=== PATIENT | male | born 1995 | race Two or more races ===

== ENCOUNTER 2019-06-21 04:03 | Emergency (ER) | payer MEDICAID, OTHER ==
[~2019-06-21] VITALS: Ht 172.7 cm; Wt 88.5 kg
[2019-06-21 04:13] VITALS: BP 144/64
== END 2019-06-21 10:06 | disposition left against medical advice (07) ==
LOC: EDBD 04:03 → ER 04:03
DX: R11.2 Nausea with vomiting, unspecified (principal); Z53.21 Procedure and treatment not carried out due to patient leaving prior to being seen by health care provider

== ENCOUNTER 2020-06-05 07:22 | Inpatient (IN) | payer MEDICAID ==
[~2020-06-05] VITALS: Ht 172.7 cm; Wt 84.1 kg
[2020-06-05] MEDS ORDERED: SODIUM CHLORIDE 0.9% 1,000 ML IVB ONE (07:45)
[2020-06-05] MEDS ORDERED: ONDANSETRON HCL 4 MG/2 ML VIAL IV ONE (07:45)
[2020-06-05] MEDS ORDERED: KETOROLAC TROMETH 30 MG/ML 1ML VIAL IV ONE (07:45)
[2020-06-05] MEDS ORDERED: cefTRIAXone 1GM/50ML D5W 50 ML IV ONE (08:30)
[2020-06-05 08:38] LABS: Basophils # (auto) 0 10 ^3/uL (0-0.2); Basophils % (auto) 0.1 % (0.0-2.0); Eosinophils # (auto) 0 10 ^3/uL (0-0.8); Eosinophils % (auto) 0.3 % (0.0-7.0); Hematocrit 43.6 % (41.0-53.0); Hemoglobin 14.9 g/dL (13.5-17.5); Lymphocytes # (auto) 1.6 10 ^3/uL (0.4-5.4); Lymphocytes % (auto) 11.8 % (10.0-50.0); Mean Corpuscular Hgb Conc. 34.2 g/dL (32.0-36.0); Mean Corpuscular Volume 87.6 fL (80.0-100.0); Monocytes # (auto) 0.7 10 ^3/uL (0-1.3); Monocytes % (auto) 5.2 % (0.0-12.0); Neutrophils # (auto) 10.8 10 ^3/uL (1.6-8.6); Neutrophils % (auto) 82.6 % (37.0-80.0); Platelet Count (auto) 205 10^3/uL (140-450); Red Blood Cells 4.99 10^6/uL (4.5-5.90); Red Cell Distribution Width 12.8 % (11.8-14.3); White Blood Cell 13.1 10^3/uL (4.4-10.8)
[2020-06-05 08:39] LABS: Urine Bacteria NONE SEEN /hpf (None Seen); Urine Blood Negative /uL (Negative); Urine Mucus FEW (None Seen); Urine Specific Gravity 1.017 (1.001-1.035); Urine WBC 1 /hpf (0 - 3)
[2020-06-05 08:52] LABS: Albumin 4.2 g/dL (3.4-5.0); Calcium 9.3 mg/dL (8.5-10.1); Potassium 3.7 mmol/L (3.5-5.1)
[2020-06-05 08:58] LABS: BUN/Creatinine Ratio 8.8; Bilirubin, Total 0.7 mg/dL (0.2-1.0); Total Protein 7.4 g/dL (6.4-8.2)
[2020-06-05 09:23] LABS: INR 1.01 (0.9-1.15); Partial Thromboplastin Time 28.3 sec (23.0-31.2)
[2020-06-05] MEDS ORDERED: metroNIDAZOLE 500MG/100ML 100 ML IV ONE (10:45)
[2020-06-05] MEDS: D5W/SOD CHL 0.45%/KCL 20MEQ 1,000 ML IV SCH (11:15)
[2020-06-05] MEDS ORDERED: ONDANSETRON HCL 4 MG/2 ML VIAL IV PRN ×2 (11:30→14:30)
[2020-06-05] MEDS: metroNIDAZOLE 500MG/100ML 100 ML IV SCH ×2 (12:45→22:00)
[2020-06-05] MEDS ORDERED: fentaNYL CITRATE 100 MCG/2 ML VL ONE ×3 (12:50→15:14)
[2020-06-05] MEDS ORDERED: MIDAZOLAM HCL 1MG/1ML-2 ML VIAL ONE (12:50)
[2020-06-05] MEDS ORDERED: SUCCINYLCHOLINE CHLORIDE 20 MG/ML 10ML VIAL IV ONE (12:54)
[2020-06-05] MEDS ORDERED: ROCURONIUM 10MG/ML 10ML VIAL IV ONE (12:59)
[2020-06-05] MEDS ORDERED: POVIDONE IODINE 10 % TOPICAL OINT 30GM TOP ONE (13:00)
[2020-06-05] MEDS: ceFAZolin 1GM/50ML 50 ML IV ONE (13:14)
[2020-06-05] MEDS ORDERED: PROPOFOL 10 MG/ML 20 ML IV ONE (13:43)
[2020-06-05] MEDS ORDERED: METOCLOPRAMIDE HCL 5MG/ml INJ 2ml VIAL ONE (13:43)
[2020-06-05] MEDS ORDERED: NEOSTIGMINE 1 MG/ML INJ (10mg/10ML VIAL) ONE (13:58)
[2020-06-05] MEDS ORDERED: GLYCOPYRROLATE 0.2 MG/ML 1ML VIAL ONE (13:58)
[2020-06-05] MEDS ORDERED: HYDROmorphone HCL 2 MG/ML VL IV PRN (14:30)
[2020-06-05] MEDS: HYDROmorphone HCL 2 MG/ML VL IV PRN ×4 (14:30→15:00)
[2020-06-05] MEDS ORDERED: fentaNYL CITRATE 100 MCG/2 ML VL IV PRN (15:00)
[2020-06-05] MEDS ORDERED: NALOXONE HCL 0.4 MG/ML VIAL ONE (15:22)
[2020-06-05] MEDS ORDERED: ACETAMINOPHEN IV 1000 MG/100ML (10MG/ML) IV ONE (18:00)
[2020-06-05] MEDS ORDERED: ACETAMINOPHEN IV 100 ML IV ONE (18:19)
[2020-06-05 22:00] VITALS: BP 112/68
[2020-06-05 22:58] VITALS: BP 122/68
[2020-06-06] MEDS: MORPHINE SULF INJ 2 MG/ML SYRINGE 1ML IV PRN ×3 (00:30→22:14)
[2020-06-06 05:00] VITALS: BP 111/59
[2020-06-06] MEDS: metroNIDAZOLE 500MG/100ML 100 ML IV SCH ×3 (05:47→22:14)
[2020-06-06 06:00] LABS: Basophils # (auto) 0 10 ^3/uL (0-0.2); Basophils % (auto) 0.1 % (0.0-2.0); Eosinophils # (auto) 0 10 ^3/uL (0-0.8); Hematocrit 36.3 % (41.0-53.0); Hemoglobin 12.6 g/dL (13.5-17.5); Lymphocytes # (auto) 1.5 10 ^3/uL (0.4-5.4); Mean Corpuscular Hemoglobin 29.7 pg (28.0-32.0); Mean Corpuscular Hgb Conc. 34.6 g/dL (32.0-36.0); Mean Corpuscular Volume 85.8 fL (80.0-100.0); Monocytes # (auto) 0.8 10 ^3/uL (0-1.3); Neutrophils # (auto) 8.8 10 ^3/uL (1.6-8.6); Neutrophils % (auto) 78.9 % (37.0-80.0); Platelet Count (auto) 200 10^3/uL (140-450); Red Blood Cells 4.24 10^6/uL (4.5-5.90); Red Cell Distribution Width 12.6 % (11.8-14.3); White Blood Cell 11.1 10^3/uL (4.4-10.8)
[2020-06-06 06:22] LABS: Potassium 3.5 mmol/L (3.5-5.1)
[2020-06-06 06:33] LABS: Albumin 3.6 g/dL (3.4-5.0); BUN/Creatinine Ratio 8.8; Bilirubin, Total 0.8 mg/dL (0.2-1.0); Calcium 8.7 mg/dL (8.5-10.1); Total Protein 6.5 g/dL (6.4-8.2)
[2020-06-06 09:00] VITALS: BP 113/69
[2020-06-06] MEDS: cefTRIAXone 1GM/50ML D5W 50 ML IV SCH (09:52)
[2020-06-06 13:00] VITALS: BP 131/81
[2020-06-06 17:00] VITALS: BP 125/84
[2020-06-06 22:00] VITALS: BP 142/75
[2020-06-07 05:00] VITALS: BP 133/53
[2020-06-07] MEDS: D5W/SOD CHL 0.45%/KCL 20MEQ 1,000 ML IV SCH (05:42)
[2020-06-07] MEDS: metroNIDAZOLE 500MG/100ML 100 ML IV SCH ×3 (07:14→22:22)
[2020-06-07 09:02] VITALS: BP 125/69
[2020-06-07] MEDS: cefTRIAXone 1GM/50ML D5W 50 ML IV SCH (09:13)
[2020-06-07 13:00] VITALS: BP 138/74
[2020-06-07 17:00] VITALS: BP 104/62
[2020-06-07 22:00] VITALS: BP 134/77
[2020-06-08 05:00] VITALS: BP 142/84
[2020-06-08] MEDS: metroNIDAZOLE 500MG/100ML 100 ML IV SCH ×2 (05:30→13:27)
[2020-06-08] MEDS: MORPHINE SULF INJ 2 MG/ML SYRINGE 1ML IV PRN (05:30)
[2020-06-08] MEDS: cefTRIAXone 1GM/50ML D5W 50 ML IV SCH (11:21)
[2020-06-08 14:18] VITALS: BP 120/77
== END 2020-06-08 15:40 | disposition home or self-care (01) | DRG 233 ==
LOC: ER 07:22 → OVERFLOW 07:23 → CENTRAL 22:15 → WEST WING 06-07 17:35 → TELE-WESTW 06-08 03:46 → WEST WING 06-08 04:10
PROVIDERS: ADMIT Nurse Practitioner Acute Care; ATTEND Internal Medicine
PROC: 0DTJ4ZZ Resection of Appendix, Percutaneous Endoscopic Approach (ICD-10-PCS; principal; 2020-06-05 13:14)
DX: K35.30 Acute appendicitis with localized peritonitis, without perforation or gangrene (principal); U07.1 COVID-19; N20.0 Calculus of kidney; Z68.28 Body mass index [BMI] 28.0-28.9, adult; D72.829 Elevated white blood cell count, unspecified; E66.9 Obesity, unspecified
CPT/HCPCS: 36415; 71045; 74176; 80053; 81001; 83690; 85025; 85610; 85730; 86850; 86900; 86901; 87426; 93005; 96361; 96365; 96375; G0378; J0131; J0330; J0690; J0696; J1885; J2250; J2405; J2704; J3490

== ENCOUNTER 2020-09-08 13:44 | Emergency (ER) | payer MEDICAID ==
[~2020-09-08] VITALS: Ht 172.7 cm; Wt 81.6 kg
[2020-09-08 14:07] VITALS: BP 118/73
[2020-09-08] MEDS ORDERED: METHOCARBAMOL 500 MG TAB PO ONE (15:30)
[2020-09-08] MEDS ORDERED: KETOROLAC TROMETH 60MG/2ML VIAL IM ONE (15:30)
== END 2020-09-08 16:00 | disposition home or self-care (01) ==
LOC: ER 13:44
DX: M53.3 Sacrococcygeal disorders, not elsewhere classified (principal); K59.00 Constipation, unspecified; Z20.822 Contact with and (suspected) exposure to COVID-19
CPT/HCPCS: 36415; 72220; 81002; 87426; 96372; 99284; C9803; J1885; U0003

== ENCOUNTER 2020-09-09 17:26 | Emergency (ER) | payer MEDICAID ==
[~2020-09-09] VITALS: Ht 172.7 cm; Wt 81.6 kg
[2020-09-09 18:15] LABS: Urine Bacteria FEW /hpf (None Seen); Urine Blood Negative /uL (Negative); Urine Mucus FEW (None Seen); Urine Sperm PRESENT /hpf (None Seen); Urine WBC 1 /hpf (0 - 3)
[2020-09-09 19:17] VITALS: BP 134/85
== END 2020-09-09 20:50 | disposition home or self-care (01) ==
LOC: ER 17:26
DX: N39.0 Urinary tract infection, site not specified (principal); M79.18 Myalgia, other site; N50.812 Left testicular pain; G47.9 Sleep disorder, unspecified; N50.811 Right testicular pain; M54.5 Low back pain
CPT/HCPCS: 72192; 81001